=== PATIENT | male | born 1975 | race Caucasian/White ===

== ENCOUNTER → 2016-08-09 | Outpatient (CLI) | payer BC ==
--- NOTE | 2016-08-09 11:36 | CT ---
Exam: CT CHEST Without Contrast INDICATION: Lung nodule TECHNIQUE: Multiple, contiguous 5 mm axial cuts of the chest are obtained. No IV contrast is administered. High resolution axial images as well as sagittal and coronal reformatted images are available. COMPARISON: CT dated 02/17/14 FINDINGS: No adenopathy or effusions are seen. Moderate to severe biapical centrilobular and paraseptal emphysema. 3-4 mm pulmonary micronodule seen within the left lower lobe, grossly unchanged from prior examination. Stable 3-4 mm pulmonary micronodule seen in the superior segment of the right lower lobe. No new nodules. The aorta is normal caliber. The cardiomediastinal structures are normal. The osseous structures are unremarkable. IMPRESSION: 1. Stable pulmonary nodules as outlined above. Given greater than 2 years of stability these are likely benign in etiology. No new nodules. 2. Moderate to severe biapical centrilobular and paraseptal emphysema.
== END | disposition home or self-care (01) ==
LOC: RADCTMAIN 07:51
PROVIDERS: ATTEND Family Medicine
DX: R91.8 Other nonspecific abnormal finding of lung field (principal); J43.2 Centrilobular emphysema
CPT/HCPCS: 71250

== ENCOUNTER 2016-08-30 07:40 | Day surgery (SDC) | payer BC ==
[2016-08-26 15:45] VITALS: BMI 24.6
[~2016-08-30 07:40] MED LIST: LACTATED RINGERS 1,000 ML IV SCH
[2016-08-30 07:59] VITALS: TEMP 97.8
[2016-08-30] MEDS ORDERED: LACTATED RINGERS 1,000 ML IV ONE (07:59)
[2016-08-30] MEDS ORDERED: LIDOCAINE 1% 20 ML VIAL (10MG/ML) FOR IV START INTRADERMA ONE (07:59)
[2016-08-30] MEDS ORDERED: PROPOFOL 10 MG/ML 20 ML VIAL IV ONE (08:52)
--- NOTE | 2016-08-30 09:03 | P.GSHP ---
History of Present Illness H&P Date: 08/30/16 Chief Complaint: Rectal bleeding Is a 41-year-old male referred from Dr. Landon Jaime. Patient presents today for colonoscopy. He's had issues with rectal bleeding. - Constitutional Constitutional: Reports as per HPI Past Medical History Past Medical History: GERD/Reflux, GI Bleed Additional Past Medical History / Comment(s): Stomach ulcer 20 years OF AGE. HX CP, WAS TOLD IT WAS R/T ANXIETY ATTACK. 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 History of Any Multi-Drug Resistant Organisms: None Reported Past Surgical History: Adenoidectomy, Appendectomy, Orthopedic Surgery, Tonsillectomy Additional Past Surgical History / Comment(s): YOSVANY ear sx X3. LT hand sx Past Anesthesia/Blood Transfusion Reactions: No Reported Reaction Past Psychological History: No Psychological Hx Reported Additional Psychological History / Comment(s): ANXIETY ATTACK X1. Smoking Status: Heavy tobacco smoker Past Alcohol Use History: Rare Additional Past Alcohol Use History / Comment(s): SMOKED SINCE 1988, DOWN TO 1 1 /2 PPD. Past Drug Use History: None Reported - Past Family History Mother Family Medical History: No Reported History Medications and Allergies Home Medications Medication Instructions Recorded Confirmed Type No Known Home Medications [No 02/16/14 08/26/16 History Known Home Medications] Allergies Allergy/AdvReac Type Severity Reaction Status Date / Time No Known Allergies Allergy Verified 08/26/16 15:21 Surgical - Exam Vital Signs Temp Pulse Resp BP Pulse Ox 97.8 F 72 18 114/74 98 08/30/16 07:57 08/30/16 07:57 08/30/16 07:57 08/30/16 07:57 08/30/16 07:57 - General well developed, no distress - Eyes PERRL - ENT normal pinna - Neck no masses - Respiratory normal expansion - Cardiovascular Rhythm: regular - Abdomen Abdomen: soft, non tender Assessment and Plan Plan: GI bleed. We'll perform colonoscopy.
--- NOTE | 2016-08-30 09:15 | P.OP ---
Date of Procedure: 08/30/16 Preoperative Diagnosis: GI bleed Postoperative Diagnosis: Mild internal and external hemorrhoids Normal colon Procedure(s) Performed: Colonoscopy Anesthesia: MAC Surgeon: Everardo Esquivel Pathology: none sent Condition: stable Disposition: PACU Description of Procedure: PROCEDURE: The patient was placed on the endoscopy table in the lateral position. Digital rectal examination was performed which revealed internal and external hemorrhoids. There is no evidence of bleeding.. The prostate was symmetrical without nodules. Flexible colonoscope was then placed in the patient's anus and passed throughout the entire colon. The ileocecal valve was visualized. The cecum, ascending, transverse, descending and sigmoid colon were normal. The rectum was normal as well. There were no masses, polyps or diverticula noted in the entire colon.
[2016-08-30 09:47] VITALS: BP 117/82; PULSE 70; RESP 18
== END 2016-08-30 10:00 | disposition home or self-care (01) ==
LOC: ORWHC2ENDO 07:40
PROVIDERS: ATTEND Surgery
DX: K64.8 Other hemorrhoids (principal); K64.4 Residual hemorrhoidal skin tags; F17.200 Nicotine dependence, unspecified, uncomplicated
CPT/HCPCS: 45378; J2704; 99153